=== PATIENT | female | born 1990 | race Caucasian/White ===

== ENCOUNTER 2016-12-31 10:53 | Day surgery (SDC) | payer OTHER ==
[2016-12-29 13:06] VITALS: BMI 33.6
[~2016-12-31 10:53] MED LIST: DEXAMETHASONE SOD PHOSPHATE 10 MG/ML 1 ML VIAL IV ONE; HYDROmorphone 1 MG/ML 1 ML SYRINGE IVP PRN; LACTATED RINGERS 1,000 ML IV SCH; LIDOCAINE 1% 20 ML VIAL (10MG/ML) FOR IV START INTRADERMA PRN; MIDAZOLAM 2 MG/2 ML VIAL IV PRN; ONDANSETRON 4 MG/2 ML VIAL IVP ONE; Pre Op ABX Message 1 EACH MISC MISCELLANE ONE; SCOPOLAMINE 1.5MG/72HR PATCH TRANSDERM ONE; ceFAZolin 2 GM in SODIUM CHLORIDE 0.9% 100 ML IVPB ONE; metroNIDAZOLE-NS PMX 500 MG in SALINE 1 100ML.BAG IVPB STA
[2016-12-31 11:27] VITALS: TEMP 98.3
--- NOTE | 2016-12-31 11:51 | P.GSHP ---
History of Present Illness H&P Date: 12/31/16 Chief Complaint: rectal bleeding and pain 26 years old female presents with perianal itching, bleeding with defecation everyday for last 1 year. Multiple daily bowel movements. She has tried suppositories and creams including Preparation H. Sr. has Crohn's disease - Review of Systems Comment: All negative except stated in history of present illness. Patient does have factor V Leiden deficiency Past Medical History Past Medical History: Blood Disorder, GI Bleed, Hypertension Additional Past Medical History / Comment(s): HEART MURMUR MINOR. FACTOR V BLOOD DISORDER. BLOOD FROM RECTUM FOR FEW MONTHS, SEVERE PAIN W/ BM, POSS FISSURE; LOOSE STOOLS FOR LONG TIME. History of Any Multi-Drug Resistant Organisms: None Reported Additional Past Surgical History / Comment(s): ANGIOGRAM Past Anesthesia/Blood Transfusion Reactions: No Reported Reaction Past Psychological History: Anxiety, Panic Disorder Smoking Status: Former smoker Past Alcohol Use History: Occasional Additional Past Alcohol Use History / Comment(s): SMOKED 7 YEARS, 1 PACK PER WEEK, QUIT 11/2013. Past Drug Use History: None Reported - Past Family History Mother Family Medical History: Coronary Artery Disease (CAD), Myocardial Infarction (CO ) Medications and Allergies Home Medications Medication Instructions Recorded Confirmed Type Aspirin [Adult Low Dose Aspirin EC] 81 mg PO DAILY 12/29/16 12/31/16 History FLUoxetine HCL [PROzac] 20 mg PO TID 12/29/16 12/31/16 History Lisinopril [Zestril] 20 mg PO DAILY 12/29/16 12/31/16 History Nifedipine/Lidocain Ointment 1 applic TOPICAL BID 12/29/16 12/31/16 History busPIRone HCl [Buspar] 5 mg PO TID 12/29/16 12/31/16 History Allergies Allergy/AdvReac Type Severity Reaction Status Date / Time No Known Allergies Allergy Verified 12/31/16 11:21 Surgical - Exam Vital Signs Resp 16 12/31/16 11:13 General: Patient is alert and oriented to time, place and person and cooperative with exam. He is not in acute distress. HEENT: No pallor, no icterus, no thyroid enlargement, no cervical lymphadenopathy. Chest: Bilateral equal breath sounds present. No wheezes, no crackles. Cardiovascular: Regular rate and rhythm. Abdomen: Soft, nontender, nondistended. Integumentary: Bilateral lower extremity chronic venous dermatitis. No active ulcers or discharge. Neurologic: Cranial nerves II-XII intact. Strength upper and lower extremities 5/5. No focal neurologic deficits. Gait is normal. Assessment and Plan (1) Factor V deficiency Status: Acute (2) Rectal bleeding Status: Acute Plan: 1. Informed consent obtained and patient elected to undergo colonoscopy in the OR with exam under anesthesia. The risks, benefits and potential complications explained including bleeding, infection, fecal incontinence and patient elected to undergo the procedure
[2016-12-31] MEDS ORDERED: LIDOCAINE 1% INJ 10MG/ML (20 ML MDV) ONE (12:01)
[2016-12-31] MEDS ORDERED: PROPOFOL 10 MG/ML 20 ML VIAL IV ONE (12:01)
[2016-12-31] MEDS ORDERED: fentaNYL (PF) 50 MCG/ML 2 ML AMP ONE (12:01)
[2016-12-31] MEDS ORDERED: MIDAZOLAM 2 MG/2 ML VIAL ONE (12:01)
[2016-12-31 13:52] VITALS: PULSE 83; RESP 18
[2016-12-31 13:54] VITALS: BP 115/59
--- NOTE | 2017-02-15 18:13 | P.OP ---
Date of Procedure: 12/31/16 Preoperative Diagnosis: Rectal bleeding Family history of Chron's diasease Change in bowel habits Postoperative Diagnosis: Same Procedure(s) Performed: Colonoscopy with random biopsy Anesthesia: MAC Surgeon: Judy Stephenson Pathology: other Condition: stable Disposition: PACU Indications for Procedure: 6 years old female with family history of Crohn stasis presents with intermittent rectal bleeding bright red and change in bowel habits with alternating diarrhea and constipation. Informed consent obtained and she elected to undergo colonoscopy with possible biopsy Operative Findings: Normal colonoscopy Anal fissure Description of Procedure: The patient was brought to the endoscopy suite and placed in lateral decubitus position. IV sedation was given as per anesthesia team. Patient was on continuous vitals and pulse oximetry monitoring throughout the procedure. A timeout was performed to verify correct patient and correct procedure. Perianal examination did not show any external hemorrhoids. Digital rectal examination was performed. No masses or gross blood. Perianal exam showed posterior anal fissure A well-lubricated Olympus colonoscope was passed per rectally and was gradually advanced beyond the sigmoid colon, splenic flexure, transverse colon, hepatic flexure and cecum. The ileocecal valve was visualized as well as the appendiceal orifice . The colonoscope was gradually withdrawn inspecting all the mucosal surfaces. Bowel prep was good. No polyps, masses, AV malformations noted. No sigmoid diverticulosis noted . Random colon biopsy done using cold biopsy forceps. The scope was gradually withdrawn and retroflexed in the rectum . Grade 1 internal hemorrhoids seen. Total withdrawal time was greater than 6 minutes . Patient tolerated the procedure well and was taken to post anesthesia care unit in stable condition. Final Pathologic Diagnosis COLON, RANDOM BIOPSY: MATURE COLONIC MUCOSA WITHOUT HISTOPATHOLOGIC CHANGES.
== END 2016-12-31 13:54 | disposition home or self-care (01) ==
LOC: ORWHC2ENDO 10:53
PROVIDERS: ATTEND Surgery
DX: K64.0 First degree hemorrhoids (principal); K62.5 Hemorrhage of anus and rectum; R19.4 Change in bowel habit; Z83.79 Family history of other diseases of the digestive system; D68.2 Hereditary deficiency of other clotting factors; K62.89 Other specified diseases of anus and rectum; K50.90 Crohn's disease, unspecified, without complications; Z87.891 Personal history of nicotine dependence; I10 Essential (primary) hypertension; F41.9 Anxiety disorder, unspecified; F41.0 Panic disorder [episodic paroxysmal anxiety]; Z79.82 Long term (current) use of aspirin; Z79.899 Other long term (current) drug therapy
CPT/HCPCS: 81025; 88305; 45380; J2250; J1100; J2405; J2001; J3010; J2704